=== PATIENT | female | born 1985 | race American Indian/Alaskan Native ===

== ENCOUNTER 2019-08-29 12:45 | Outpatient (CLI) | payer OTHER | END 2019-08-30 17:26 | disposition home or self-care (01) | LOC: OBS/DEL 12:45 | DX: O99.413 Diseases of the circulatory system complicating pregnancy, third trimester (principal); R00.0 Tachycardia, unspecified; O30.043 Twin pregnancy, dichorionic/diamniotic, third trimester; O26.843 Uterine size-date discrepancy, third trimester ==

== ENCOUNTER 2019-09-01 18:47 | Outpatient (CLI) | payer OTHER ==
[2019-09-01] MEDS ORDERED: PRENATAL CAPLE1 EAC1 PO (20:33)
== END 2019-09-02 16:40 | disposition home or self-care (01) ==
LOC: OBS/DEL 18:47
DX: O12.03 Gestational edema, third trimester (principal); O30.043 Twin pregnancy, dichorionic/diamniotic, third trimester; O60.03 Preterm labor without delivery, third trimester